=== PATIENT | male | born 1985 | race Caucasian/White ===

== ENCOUNTER 2018-08-12 12:47 | Emergency (ER) | payer OTHER ==
[~2018-08-12] VITALS: Ht 180.3 cm; Wt 97.7 kg
[2018-08-12 12:51] VITALS: BP 144/92
--- NOTE | 2018-08-12 13:07 | NUR ---
CONTACT WITH PT. DR RIVERA AT BEDSIDE TO GERALDINE PT
[2018-08-12] MEDS ORDERED: KETOROLAC 30 MG/1 ML IM ONE (13:30)
[2018-08-12] MEDS ORDERED: KETOROLAC 30 MG/1 ML ONE (13:36)
--- NOTE | 2018-08-12 14:14 | NUR ---
NO SIG CHANGE IN PAIN LEVEL AT THIS TIME. PT PROVIDED WITH ICE PACK. NO IV TO DC. REVIEWED DC INSTRUCTIONS WITH PT. UNDERSTANDING VERBALIZED. PT LEFT AMB, GAIT STEADY.
== END 2018-08-12 14:22 | disposition home or self-care (01) ==
LOC: ED 14:16
DX: S16.1XXA Strain of muscle, fascia and tendon at neck level, initial encounter (principal); S39.012A Strain of muscle, fascia and tendon of lower back, initial encounter; Z87.891 Personal history of nicotine dependence; V47.5XXA Car driver injured in collision with fixed or stationary object in traffic accident, initial encounter; Y93.89 Activity, other specified; Y92.89 Other specified places as the place of occurrence of the external cause; Y99.8 Other external cause status
CPT/HCPCS: 96372; 99283; J1885